=== PATIENT | female | born 1940 | race Two or more races ===

== ENCOUNTER 2018-03-10 12:34 | Inpatient (IN) | payer MEDICARE, BC ==
--- NOTE | 2018-03-10 13:28 | XR ---
EXAMINATION TYPE: XR chest 1V portable DATE OF EXAM: 03/10/2018 HISTORY: Pain. REFERENCE: NONE. FINDINGS: The lungs are overinflated. There is a small irregular density in the region of the right C P angle. There is also nodular density in the left upper lobe. The heart is not enlarged. Pleural spa jake are clear. IMPRESSION: 1. COPD. 2. NODULARITY IN BOTH LUNGS. A NONEMERGENT CT SCAN OF THE CHEST WOULD BE SUGGESTED.
[2018-03-10] MEDS ORDERED: IV FLUID CONTINUATION 900 ML IV ONE (14:35)
[2018-03-10] MEDS ORDERED: LIDOCAINE 1% INJ 10MG/ML (20 ML MDV) ONE (14:36)
[2018-03-10] MEDS ORDERED: fentaNYL (PF) 50 MCG/ML 2 ML AMP ONE (14:36)
[2018-03-10] MEDS ORDERED: LIDOCAINE 1% INJ 10MG/ML (20 ML MDV) SQ ONE (14:59)
[2018-03-10] MEDS ORDERED: IOPAMIDOL-370 125ML BTL INJ ONE (15:05)
--- NOTE | 2018-03-10 18:46 | CC ---
CARDIAC CATHETERIZATION REPORT PERFORMING PHYSICIAN: Turner Riley MD, station baggage agent. PROCEDURE PERFORMED: 1. Selective right and left coronary angiogram. 2. Left heart catheterization. INDICATION: This is a very pleasant 77-year-old female patient who was transferred from [facility] to [facility] after she presented with chest discomfort and EKG showing ST-segment elevation. The ST-segment elevation were more prominent in the anteroseptal leads. Because of that, a heart catheterization was advised. COMPLICATION: None. LEVEL OF SEDATION: Moderate with sedation length of 10 minutes. APPROACH: Right common femoral artery. PROCEDURE DESCRIPTION: After obtaining an informed consent, the patient was brought to the cardiac cork slabs sawyer. The right common femoral artery was cannulated using micropuncture technique and a micropuncture wire passed easily then I placed a 6-Belgian sheath in the right common femoral artery. After that I did selective right and left coronary angiogram using JR4 and JL4 catheters. Left heart catheterization was performed using 6-Belgian pigtail catheter. The procedure was completed without any complication. SELECTIVE CORONARY ANGIOGRAM: 1. Right coronary artery is a large caliber vessel and is a dominant vessel. It is angiographically normal. It bifurcates distally into PDA and PLV branches both are angiographically normal. 2. The left main is angiographically normal. It bifurcates into left circumflex, ramus intermedius, and left anterior descending artery. 3. The left circumflex is a large caliber vessel. It is a nondominant vessel and appeared to be angiographically normal. 4. The ramus intermedius is a moderate caliber vessel, seems to be angiographically normal. 5. The LAD: The proximal LAD is normal. The mid LAD is normal and gives rise into a large diagonal branch which appeared to be normal and the LAD distally is angiographically normal. HEMODYNAMICS: The left ventricular end-diastolic pressure was 10 mmHg without significant gradient across the aortic valve. CONCLUSION: 1. Normal coronary angiogram. 2. Normal left ventricular end-diastolic pressure. POSTPROCEDURE MANAGEMENT: 1. Maximize medical treatment. 2. Follow up with the patient. MMROMÁN / GUILLEN: [id number] /
--- NOTE | 2018-03-10 18:46 | CONS ---
CONSULTATION DATE OF SERVICE: March 10, 2018. REASON FOR THE CONSULTATION: Chest discomfort. This is a pleasant 77-year-old female patient who was transferred from [facility] to [facility] for further evaluation of chest discomfort and abnormal EKG. The patient overall is a poor historian and she does have some underlying dementia. History was taken from the daughter as well as from her grandson. Apparently, the patient lives with her daughter until recently when she was admitted to [facility] with what it seems to be pneumonia according to her daughter and she was discharged into an extended care facility for rehabilitation. This morning, the patient woke up complaining of shortness of breath as well as sweaty and she was looking pale. She did have also mild chest discomfort. Because of that, the patient was brought to the emergency room at [facility] where an EKG was performed and showed sinus rhythm with ST-segment elevation in the anteroseptal leads. Subsequently the patient was transferred to the emergency room at [facility]. Initially, I decided to treat the patient medically in view of her underlying dementia and the absence of chest discomfort when she was seen and evaluated in the ER. The patient's daughter and family wants everything to be done. Because of that, the patient was taken to the cardiac labeling specialist where she underwent a heart catheterization and that revealed normal coronaries. The procedure was performed from the right groin without any complication. PAST MEDICAL HISTORY: There is no history of diabetes or hypertension or dyslipidemia. PAST SURGICAL HISTORY: There is no major cardiovascular surgery before. SOCIAL HISTORY: The patient does not smoke or drink alcohol. DIAGNOSTIC WORKUP: The EKG showed sinus rhythm with ST-segment elevation in the anteroseptal leads. The blood work from [facility] and the chart from [facility] was reviewed in details. ASSESSMENT: Chest discomfort, likely to be noncardiac. PLAN: 1. The patient underwent a heart catheterization that revealed normal coronaries. 2. An echocardiogram to evaluate the LV function. 3. Follow up with the patient. MMODL / IJN: [id number] /
[2018-03-10] MEDS ORDERED: LORazepam 2 MG/ML INJ IV PRN (21:46)
[2018-03-10] MEDS ORDERED: SODIUM CHLORIDE 0.9% 1,000 ML IV SCH (22:00)
[2018-03-10] MEDS ORDERED: ONDANSETRON 4 MG/2 ML VIAL IVP PRN (22:26)
[2018-03-10] MEDS ORDERED: TEMAZEPAM 15 MG CAP PO PRN (22:26)
[2018-03-10] MEDS ORDERED: NALOXONE 0.4 MG/ML 1 ML VIAL IV PRN (22:26)
[2018-03-10] MEDS ORDERED: MAGNESIUM HYDROXIDE 2,400 MG/10 ML CUP PO PRN (22:26)
[2018-03-10] MEDS ORDERED: ACETAMINOPHEN TAB 325 MG TAB PO PRN (22:26)
[2018-03-10] MEDS ORDERED: LACTULOSE 20 GM/30 ML CUP PO PRN (22:26)
[2018-03-10] MEDS: IPRATROPIUM-ALBUTEROL 3 ML NEB INHALATION SCH (23:23)
[2018-03-11 01:04] LABS: INR 0.9 (<1.2); Partial Thromboplastin Time 24.5 sec (22.0-30.0); Prothrombin Time 9.6 sec (9.0-12.0)
[2018-03-11] MEDS: FAMOTIDINE 20 MG TAB PO SCH ×3 (01:36→21:20)
[2018-03-11 01:40] LABS: Creatine Kinase MB 4.5 ng/mL (0.0-2.4)
[2018-03-11 01:45] LABS: Troponin I 0.27 ng/mL (0.000-0.034)
[2018-03-11 01:47] LABS: ALT 41 U/L (9-52); AST 31 U/L (14-36); Albumin 3.6 g/dL (3.5-5.0); Alkaline Phosphatase 75 U/L (38-126); Anion Gap 7 mmol/L; Blood Urea Nitrogen 16 mg/dL (7-17); Calcium 9.1 mg/dL (8.4-10.2); Carbon Dioxide 29 mmol/L (22-30); Chloride 99 mmol/L (98-107); Glucose 109 mg/dL (74-99); Lipase 137 U/L (23-300); Magnesium 2.4 mg/dL (1.6-2.3); Phosphorus 4.7 mg/dL (2.5-4.5); Sodium 135 mmol/L (137-145); Total Bilirubin 0.6 mg/dL (0.2-1.3); Total Protein 6.3 g/dL (6.3-8.2)
--- NOTE | 2018-03-11 03:18 | HP ---
HISTORY AND PHYSICAL DATE OF ADMISSION: 03/10/2018 DATE OF SERVICE: 03/10/2018 PRESENT COMPLAINT: Acute confusion. HISTORY OF PRESENTING COMPLAINT: This is a 77-year-old patient of Dr. Rickey Welch, currently resident of [facility]. Chronic stable medical conditions include COPD, Alzheimer's dementia, urinary incontinence, on home oxygen 2 L. Where she lives this morning she was found to be a bit confused, flushed, sweaty, and patient was taken down to [facility]. The patient's troponin was found to be 0.279 and the patient was felt to have acute myocardial infarction, was transferred down here. The patient had ST elevation in the anterior leads and taken to the cardiac blood bank laboratory technician with the diagnosis of acute ST- elevation myocardial infarction. The cardiac cath revealed normal coronaries. The patient's daughter at the bedside giving most of the history. Because of dementia, the patient does not remember most of her symptoms from this morning and only talked about going home, though does not complain of any chest pain and appears rather comfortable right now otherwise. REVIEW OF SYSTEMS: CONSTITUTIONAL: Tired. HEENT: None. RESPIRATORY: Cough. CARDIOVASCULAR: None. GASTROINTESTINAL: None. GENITOURINARY: Incontinence, uses a brief. DERMATOLOGICAL: Some bruising. LYMPHATICS: None. PSYCHIATRY: Forgetful. NEUROLOGICAL: None. PAST MEDICAL HISTORY: COPD, Alzheimer's dementia, urinary incontinence, home oxygen 2 L. SOCIAL HISTORY: Patient smoked for close to about 60 years, stopped about 3 years ago. Did drink alcohol in the past. 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 FAMILY HISTORY: Reviewed. The patient does not remember. HOME MEDICATIONS: 1. PreserVision AREDS 1 capsule p.o. b.i.d. 2. DuoNeb q.i.d. 3. Iron 325 p.o. daily. 4. Pepcid 20 mg b.i.d. 5. Aricept 10 mg p.o. daily. 6. Celexa 20 mg p.o. daily. 7. Calcium 600 mg daily. 8. Pulmicort 0.5 mg q.i.d. 9. Aspirin 81 mg p.o. daily. ALLERGIES: PENICILLIN, STRAWBERRY, SULFA, TETRACYCLINE. PHYSICAL EXAMINATION: VITAL SIGNS: Reviewed in the paper chart as computers are down. GENERAL APPEARANCE: Thin build. BMI 18.9. Lying in bed. EYES: Pupils equal, conjunctivae normal. HEENT: External appearance of ears and nose is normal. Oral cavity normal. NECK: JVD not raised. Mass not palpable. Respiratory effort normal. LUNGS: Diminished breath sounds. CARDIOVASCULAR: 1st and 2nd sounds normal. No edema. ABDOMEN: Soft, nontender. Liver and spleen not palpable. LYMPHATICS: No lymph node palpable in neck and axilla. PSYCHIATRY: Patient is able to answer simple questions. DERMATOLOGICAL: Bruising in the hands. Also has a dressing over the right groin. INVESTIGATIONS: Blood work from [facility] showed a white count of 13.9, hemoglobin 14.2, platelets 385. BUN 15, creatinine 0.7. ProBNP 2790, troponin 0.279. EKG tracing personally reviewed by me shows ST elevation in anterior leads. ASSESSMENT: 1. Acute ST-elevation myocardial infarction with normal cardiac catheterization. 2. Chronic obstructive pulmonary disease in an ex-smoker. 3. Chronic hypoxic respiratory failure on 2 L of oxygen from underlying chronic obstructive pulmonary disease. 4. Late onset Alzheimer's dementia causing moderate cognitive impairment. 5. Chronic urinary incontinence. 6. Mild protein-calorie malnutrition in a patient with a BMI of 18.7 and loss of subcutaneous muscle mass. PLAN: Home medications will be resumed. Patient will be continued on aspirin. The patient's cardiac cath was normal. Given that the patient had an IN, will use a small dose of beta parish and also Lipitor. The patient was seen by cooking casing and drying supervisor, Dr. Riley, who did the cardiac catheterization. Care was discussed with daughter at the bedside. MMODL / IJN: [id number] /
[2018-03-11 05:44] LABS: Basophils % (A) 0 %; Eosinophils # (A) 0.1 k/uL (0-0.7); Eosinophils % (A) 0 %; HCT 43.7 % (34.0-46.0); Lymphocytes # (A) 0.6 k/uL (1.0-4.8); Lymphocytes % (A) 4 %; MCH 29.7 pg (25.0-35.0); MCHC 32.1 g/dL (31.0-37.0); MCV 92.7 fL (80.0-100.0); Mean Platelet Volume 7.6; Monocytes # (A) 0.3 k/uL (0-1.0); Monocytes % (A) 2 %; Neutrophils # (A) 14.9 k/uL (1.3-7.7); Neutrophils % (A) 93 %; Platelet Count 416 k/uL (150-450); RBC 4.72 m/uL (3.80-5.40); RDW 13.7 % (11.5-15.5)
[2018-03-11 07:13] LABS: Basophils % (A) 0 %; Eosinophils # (A) 0.1 k/uL (0-0.7); Eosinophils % (A) 1 %; HCT 41.1 % (34.0-46.0); HGB 12.8 gm/dL (11.4-16.0); Hypochromasia Slight; Lymphocytes # (A) 1.8 k/uL (1.0-4.8); Lymphocytes % (A) 17 %; MCHC 31.1 g/dL (31.0-37.0); MCV 93.2 fL (80.0-100.0); Mean Platelet Volume 5.9; Monocytes # (A) 0.8 k/uL (0-1.0); Monocytes % (A) 7 %; Neutrophils # (A) 7.9 k/uL (1.3-7.7); Neutrophils % (A) 73 %; Platelet Count 396 k/uL (150-450); RBC 4.41 m/uL (3.80-5.40); RDW 13.5 % (11.5-15.5); WBC 10.8 k/uL (3.8-10.6)
[2018-03-11] MEDS: IPRATROPIUM-ALBUTEROL 3 ML NEB INHALATION SCH ×4 (07:43→19:17)
[2018-03-11] MEDS: BUDESONIDE 0.5 MG/2 ML NEBU INHALATION SCH ×2 (07:43→19:17)
[2018-03-11 08:16] LABS: Anion Gap 4 mmol/L; Blood Urea Nitrogen 17 mg/dL (7-17); Calcium 8.6 mg/dL (8.4-10.2); Carbon Dioxide 28 mmol/L (22-30); Chloride 104 mmol/L (98-107); Glucose 71 mg/dL (74-99); Potassium 4.5 mmol/L (3.5-5.1); Sodium 136 mmol/L (137-145)
[2018-03-11] MEDS ORDERED: FUROSEMIDE 10 MG/ML 2 ML VIAL IV STA (09:39)
[2018-03-11] MEDS: DONEPEZIL 10 MG TAB PO SCH (09:54)
[2018-03-11] MEDS: CITALOPRAM HYDROBROMIDE 10 MG TAB PO SCH (09:54)
[2018-03-11] MEDS: ENOXAPARIN 40 MG/0.4 ML SYRINGE SQ SCH (09:55)
[2018-03-11] MEDS: ASPIRIN 81 MG PO SCH (09:55)
--- NOTE | 2018-03-11 10:20 | XR ---
EXAMINATION TYPE: XR chest 1V portable DATE OF EXAM: 03/11/2018 COMPARISON: Prior chest x-ray 03/10/2018 HISTORY: Hypoxia and cough TECHNIQUE: Single frontal view of the chest is obtained. FINDINGS: Findings are similar to prior. There are cardiac leads. Interstitium is increased. Heart s ize is stable. Pulmonary vascularity and argenis not significantly changed. Aorta is dense. No pneumotho rax or pleural effusion. Nodular densities described on prior exam are not seen on today's exam. IMPRESSION: No acute process. Correlate for emphysema, interstitial lung disease.
--- NOTE | 2018-03-11 13:08 | P.PN ---
Subjective Progress Note Date: 03/11/18 Principal diagnosis: Acute coronary syndrome This is a pleasant 77-year-old female patient who was transferred from different facility which was extended care facility to the emergency room because of shortness of breath and EKG concerning for ST segment elevation [place]. The patient underwent a heart catheterization immediately and that revealed no evidence of severe coronary artery disease. On follow-up with her today, 03/11/2018, she is doing good clinically and she remains asymptomatic at this point. Objective - Vital Signs Vital signs: Vital Signs Temp 97.9 F 03/11/18 08:00 Pulse 72 03/11/18 11:29 Resp 18 03/11/18 08:00 BP 168/77 03/11/18 08:00 Pulse Ox 92 L 03/11/18 08:00 Intake & Output 03/10/18 03/11/18 03/11/18 18:59 06:59 18:59 Intake Total 500 Balance 500 Weight 41 kg Intake: Intake, IV Titration 500 Amount Sodium Chloride 0.9% 1, 500 000 ml @ 100 mls/hr IV . Q10H [facility] Rx#:[id number] Other: Voiding Method Diaper Diaper Incontinent Incontinent # Voids 4 - Constitutional General appearance: Present: no acute distress - Respiratory Respiratory: bilateral: CTA - Cardiovascular Rhythm: regular Heart sounds: normal: S1, S2 - Labs CBC & Chem 7: 03/11/18 06:07 03/11/18 06:07 Labs: Abnormal Lab Results - Last 24 Hours (Table) 03/10/18 03/10/18 03/10/18 Range/Units 12:50 12:50 12:50 WBC 16.0 H (3.8-10.6) k/uL Neutrophils # 14.9 H (1.3-7.7) k/uL Lymphocytes # 0.6 L (1.0-4.8) k/uL Sodium 135 L (137-145) mmol/L Glucose 109 H (74-99) mg/dL Phosphorus 4.7 H (2.5-4.5) mg/dL Magnesium 2.4 H (1.6-2.3) mg/dL CK-MB (CK-2) 4.5 H (0.0-2.4) ng/mL Troponin I 0.270 H* (0.000-0.034) ng/mL 03/11/18 03/11/18 Range/Units 06:07 06:07 WBC 10.8 H (3.8-10.6) k/uL Neutrophils # 7.9 H (1.3-7.7) k/uL Lymphocytes # (1.0-4.8) k/uL Sodium 136 L (137-145) mmol/L Glucose 71 L (74-99) mg/dL Phosphorus (2.5-4.5) mg/dL Magnesium (1.6-2.3) mg/dL CK-MB (CK-2) (0.0-2.4) ng/mL Troponin I (0.000-0.034) ng/mL Assessment and Plan Assessment: Assessment #1 shortness of breath which has improved Plan #1 continue the current medical regimen #2 obtain a copy of the echo from [facility] #3 follow-up with the patient with anticipation of discharge in the next 24 hours
--- NOTE | 2018-03-11 23:46 | PN ---
PROGRESS NOTE DATE OF SERVICE: March 11, 2018. PRESENT COMPLAINT: Short of breath. INTERVAL HISTORY: This patient presented with acute ST-elevation myocardial infarction, had a negative cardiac catheterization, had some flare of COPD today, doing better this afternoon. Patient did tolerate a diet. Resting in bed. REVIEW OF SYSTEMS: Done for constitutional, cardiovascular, GI, pulmonary; relevant findings as above. MEDICATIONS: Current medications are reviewed. PHYSICAL EXAMINATION: VITAL SIGNS: Temperature 98.9, pulse 80, respiratory 18, blood pressure 147/66, pulse ox 94 percent on 3 L. GENERAL APPEARANCE: Lying in bed comfortable. EYES: Pupils equal. Conjunctivae normal. NECK: JVD not raised. Mass not palpable. RESPIRATORY: Effort normal. LUNGS: Diminished breath sounds. CARDIOVASCULAR: 1st and 2nd sounds normal. No edema. ABDOMEN: Soft, nontender. Liver and spleen not palpable. PSYCHIATRY: Awake, answering simple questions. INVESTIGATIONS: White count 10.8, hemoglobin 12.8, potassium 4.5. ASSESSMENT: 1. Acute ST-elevation myocardial infarction with normal cardiac catheterization. 2. Chronic obstructive pulmonary disease in an ex-smoker. 3. Chronic hypoxic respiratory failure on 2 L oxygen from underlying chronic obstructive pulmonary disease. 4. Late onset Alzheimer's dementia causing moderate cognitive impairment. 5. Chronic urine incontinence. 6. Mild protein calorie malnutrition, the patient's BMI of 18.7. PLAN: If the patient remains stable, we will let the patient be discharged tomorrow. Given the acute TX, we will add a small dose of beta parish and Lipitor. MMODL / GUILLEN: [id number] /
[2018-03-12 06:23] LABS: Anion Gap 5 mmol/L; Blood Urea Nitrogen 14 mg/dL (7-17); Calcium 8.9 mg/dL (8.4-10.2); Carbon Dioxide 31 mmol/L (22-30); Chloride 98 mmol/L (98-107); Glucose 82 mg/dL (74-99); Potassium 4.2 mmol/L (3.5-5.1); Sodium 134 mmol/L (137-145)
[2018-03-12] MEDS: IPRATROPIUM-ALBUTEROL 3 ML NEB INHALATION SCH ×4 (07:30→19:05)
[2018-03-12] MEDS: BUDESONIDE 0.5 MG/2 ML NEBU INHALATION SCH ×2 (07:30→19:05)
[2018-03-12] MEDS: METOPROLOL TARTRATE 12.5 MG TAB PO SCH ×2 (08:26→19:31)
[2018-03-12] MEDS: ASPIRIN 81 MG PO SCH (08:26)
[2018-03-12] MEDS: ENOXAPARIN 40 MG/0.4 ML SYRINGE SQ SCH (08:26)
[2018-03-12] MEDS: CITALOPRAM HYDROBROMIDE 10 MG TAB PO SCH (08:26)
[2018-03-12] MEDS: FAMOTIDINE 20 MG TAB PO SCH ×2 (08:26→19:31)
[2018-03-12] MEDS: DONEPEZIL 10 MG TAB PO SCH (08:26)
--- NOTE | 2018-03-12 14:34 | P.PN ---
Subjective Progress Note Date: 03/12/18 Is is a 77-year-old female who resides at an extended care facility, presented to the hospital with chest discomfort and was found to have an EKG concerning for ST elevation [place]. She underwent a cardiac catheterization immediately that revealed no evidence of severe coronary artery disease. Patient was seen and examined this morning, denied any chest pain, breathing overall stable. Blood pressure 96/50, heart rate in the 90s, 92% on 3 L. Objective - Vital Signs Vital signs: Vital Signs Temp 97.7 F 03/12/18 12:25 Pulse 92 03/12/18 11:52 Resp 18 03/12/18 12:25 BP 94/53 03/12/18 12:25 Pulse Ox 92 L 03/12/18 12:25 Intake & Output 03/11/18 03/12/18 03/12/18 18:59 06:59 18:59 Intake Total 220 200 Output Total 2 0 Balance 218 0 200 Weight 41 kg Intake: Oral 220 200 Output: Urine 2 0 Other: Voiding Method Diaper Diaper Diaper Incontinent Incontinent Incontinent # Voids 3 - Exam PHYSICAL EXAMINATION: GENERAL: 77-year-old female in no acute distress at the time of my examination HEENT: Head is atraumatic, normocephalic. Pupils equal, round. Sclera anicteric. Conjunctiva are clear. Mucous membranes of the mouth are moist. Neck is supple. There is no elevated jugular venous pressure.no carotid bruit is heard. HEART EXAMINATION: Heart S1, S2 normal. No murmur or gallop heard. CHEST EXAMINATION: Lungs are clear to auscultation and precussion. No chest wall tenderness is noted on palpation or with deep breathing. ABDOMEN: Soft, nontender. Bowel sounds are heard. No organomegaly noted. EXTREMITIES: 2+ peripheral pulses with no evidence of peripheral edema and no calf tenderness noted. NEUROLOGIC patient is awake, alert and oriented 3 . . - Labs CBC & Chem 7: 03/11/18 06:07 03/12/18 05:10 Labs: Abnormal Lab Results - Last 24 Hours (Table) 03/12/18 Range/Units 05:10 Sodium 134 L (137-145) mmol/L Carbon Dioxide 31 H (22-30) mmol/L Assessment and Plan Plan: Assessment and plan #1 symptoms of shortness of breath, and initial EKG suggested possible ST elevation [place], patient was taken to the cardiac catheterization lab, she was found not to have any significant obstructive coronary artery disease. Plan From cardiology's perspective, patient may be able to be discharged home today. We'll make her a follow-up appointment in the office post discharge.
[2018-03-12 15:03] VITALS: BMI 16.5
--- NOTE | 2018-03-12 15:23 | DS ---
DISCHARGE SUMMARY DATE OF ADMISSION: March 10, 2018 DATE OF DISCHARGE: March 12, 2018. FINAL DIAGNOSES: 1. Acute ST-elevation myocardial infarction with normal cardiac catheterization. 2. Chronic obstructive pulmonary disease in an ex-smoker. 3. Chronic hypoxic respiratory failure on 2 L oxygen from underlying chronic obstructive pulmonary disease. 4. Moderate cognitive impairment from late onset Alzheimer's dementia. 5. Chronic urine incontinence. 6. Mild protein calorie malnutrition with the patient's BMI of 18.7. HOSPITAL COURSE: This patient was transferred here with ST-elevation myocardial infarction. Cardiac cath revealed normal coronaries. The patient had no further episodes of chest pain here. Troponin was 0.2. PROCEDURE: Cardiac catheterization by Dr. Riley. The patient is otherwise comfortable. PHYSICAL EXAMINATION: VITAL SIGNS: Temperature 97.7, pulse 90, respiratory 18, blood pressure 94/53 pulse ox 92% on 3 L. Lungs decreased breath sounds. Psych: Patient able to answer simple questions. INVESTIGATIONS: Potassium 4.2. DISCHARGE MEDICATIONS: 1. Aspirin 81 mg a day. 2. Pulmicort 0.5 mg b.i.d. 3. Calcium 600 mg p.o. daily. 4. Celexa 30 mg p.o. daily. 5. Aricept 10 mg p.o. daily. 6. Pepcid 20 mg b.i.d. 7. Iron 325 p.o. daily. 8. DuoNeb q.i.d. 9. PreserVision that is 2 soft gel 1 capsule p.o. b.i.d. 10.Lipitor 20 mg at bedtime. 11.Melatonin 3 mg p.o. q.h.s. 12.Lopressor 12.5 p.o. b.i.d. DISPOSITION: [facility]. Oxygen as before. Copy to Dr. Welch. MMODL / IJN: [id number] /
[2018-03-12] MEDS ORDERED: ATORVASTATIN 20 MG TAB PO SCH (21:00)
[2018-03-13] MEDS: IPRATROPIUM-ALBUTEROL 3 ML NEB INHALATION SCH ×2 (08:37→11:28)
[2018-03-13] MEDS: BUDESONIDE 0.5 MG/2 ML NEBU INHALATION SCH (08:37)
[2018-03-13] MEDS: METOPROLOL TARTRATE 12.5 MG TAB PO SCH (09:35)
[2018-03-13] MEDS: CITALOPRAM HYDROBROMIDE 10 MG TAB PO SCH (09:35)
[2018-03-13] MEDS: DONEPEZIL 10 MG TAB PO SCH (09:36)
[2018-03-13] MEDS: ASPIRIN 81 MG PO SCH (09:36)
[2018-03-13] MEDS: FAMOTIDINE 20 MG TAB PO SCH (09:36)
[2018-03-13] MEDS: ENOXAPARIN 40 MG/0.4 ML SYRINGE SQ SCH (09:36)
[2018-03-13 11:31] VITALS: RESP 16
[2018-03-13 11:39] VITALS: PULSE 70
[2018-03-13 12:23] VITALS: BP 104/50; TEMP 97.9
--- NOTE | 2018-03-13 13:33 | P.PN ---
Subjective Progress Note Date: 03/13/18 Is is a 77-year-old female who resides at an extended care facility, presented to the hospital with chest discomfort and was found to have an EKG concerning for ST elevation [place]. She underwent a cardiac catheterization immediately that revealed no evidence of severe coronary artery disease. Patient was seen and examined this morning, denied any chest pain, breathing overall stable. Blood pressure 96/50, heart rate in the 90s, 92% on 3 L. 03/13/2018 She was seen and examined this morning, sitting up in her chair at bedside. Being transferred back to [facility] today. Hemodynamically she is stable. Denies any chest discomfort and her breathing is stable. Objective - Vital Signs Vital signs: Vital Signs Temp 97.9 F 03/13/18 12:22 Pulse 70 03/13/18 11:39 Resp 16 03/13/18 12:22 BP 104/50 03/13/18 12:22 Pulse Ox 96 03/13/18 12:22 Intake & Output 03/12/18 03/13/18 03/13/18 18:59 06:59 18:59 Intake Total 600 240 350 Output Total 0 Balance 600 240 350 Weight 41 kg 40.5 kg Intake: Oral 600 240 350 Output: Urine 0 Other: Voiding Method Diaper Diaper Diaper Incontinent Incontinent Incontinent # Voids 1 1 1 # Bowel Movements 1 - Exam PHYSICAL EXAMINATION: GENERAL: 77-year-old female in no acute distress at the time of my examination HEENT: Head is atraumatic, normocephalic. Pupils equal, round. Sclera anicteric. Conjunctiva are clear. Mucous membranes of the mouth are moist. Neck is supple. There is no elevated jugular venous pressure.no carotid bruit is heard. HEART EXAMINATION: Heart S1, S2 normal. No murmur or gallop heard. CHEST EXAMINATION: Lungs are clear to auscultation and precussion. No chest wall tenderness is noted on palpation or with deep breathing. ABDOMEN: Soft, nontender. Bowel sounds are heard. No organomegaly noted. EXTREMITIES: 2+ peripheral pulses with no evidence of peripheral edema and no calf tenderness noted. NEUROLOGIC patient is awake, alert and oriented 3 . . - Labs CBC & Chem 7: 03/11/18 06:07 03/12/18 05:10 Assessment and Plan Plan: Assessment and plan #1 symptoms of shortness of breath, and initial EKG suggested possible ST elevation [place], patient was taken to the cardiac catheterization lab, she was found not to have any significant obstructive coronary artery disease. Plan From cardiology's perspective, patient may be able to be discharged home today. We'll make her a follow-up appointment in the office post discharge.
== END 2018-03-13 12:44 | DRG 281 ==
LOC: EC 12:34 → 3SCARD 13:44
PROVIDERS: ADMIT Hospitalist; ATTEND Hospitalist
PROC: B2111ZZ Fluoroscopy of Multiple Coronary Arteries using Low Osmolar Contrast (ICD-10-PCS; 2018-03-10)
PROC: B2151ZZ Fluoroscopy of Left Heart using Low Osmolar Contrast (ICD-10-PCS; 2018-03-10)
PROC: 4A023N7 Measurement of Cardiac Sampling and Pressure, Left Heart, Percutaneous Approach (ICD-10-PCS; principal; 2018-03-10 14:30)
DX: I21.3 ST elevation (STEMI) myocardial infarction of unspecified site (principal); E44.1 Mild protein-calorie malnutrition; J96.11 Chronic respiratory failure with hypoxia; Z68.1 Body mass index [BMI] 19.9 or less, adult; Z87.891 Personal history of nicotine dependence; F02.80 Dementia in other diseases classified elsewhere, unspecified severity, without behavioral disturbance, psychotic disturbance, mood disturbance, and anxiety; G30.1 Alzheimer's disease with late onset; Z87.01 Personal history of pneumonia (recurrent); J44.9 Chronic obstructive pulmonary disease, unspecified; Z99.81 Dependence on supplemental oxygen; R32 Unspecified urinary incontinence; Z79.82 Long term (current) use of aspirin; Z88.1 Allergy status to other antibiotic agents; Z88.0 Allergy status to penicillin; Z88.2 Allergy status to sulfonamides; Z79.51 Long term (current) use of inhaled steroids; Z79.899 Other long term (current) drug therapy
CPT/HCPCS: 71045; 80048; 80053; 82550; 82553; 83690; 83735; 84100; 84484; 85025; 85610; 85730; 93458; 94640; 94760